=== PATIENT | male | born 1985 | race African-American/Black ===

== ENCOUNTER 2017-04-05 13:41 | Emergency (ER) | payer MEDICAID ==
[~2017-04-05] VITALS: Ht 185.4 cm; Wt 110.0 kg
[~2017-04-05 13:41] MED LIST: BENZ2TAB7 PO; QUET300T2 *; RISP2 PO; RIVA20TA PO; SERT-112 PO
[2017-04-05 15:13] LABS: HEMATOCRIT. 36.8 % (42.0-52.0); HEMOGLOBIN. 12.4 g/dL (14.0-18.0); MEAN CORPUSCULAR HEMOGLOBIN 31.2 pg (28.0-32.0); MEAN CORPUSCULAR VOLUME 92.5 fL (80.0-94.0); RED BLOOD CELL COUNT 3.98 mill/uL (4.7-6.1)
[2017-04-05 15:14] LABS: MEAN PLATELET VOLUME 9.4 fl (7.4-10.4); PLATELET 181 x1000/uL (130-400); RED CELL DISTRIBUTION WIDTH 14.3 % (11.6-14.6)
[2017-04-05 15:22] LABS: D-DIMER 0.27 mg/L FEU (<0.50); PROTHROMBIN TIME 10.7 sec (9.4-11.6)
[2017-04-05 15:23] LABS: CHLORIDE 110 mEq/L (98-107)
[2017-04-05 15:31] LABS: CARBON DIOXIDE 27 mEq/L (21-32)
[2017-04-05 16:26] LABS: PLATELET ESTIMATE NORMAL
[2017-04-05] MEDS ORDERED: ACETAMINOPHEN WITH CODEINE 300/30MG TABLET PO ONE (17:00)
[2017-04-05 20:00] VITALS: BP 137/82
[2017-04-06] MEDS ORDERED: RIVAROXABAN 15 MG TABLET PO SCH (17:00)
== END 2017-04-05 20:01 | disposition home or self-care (01) ==
LOC: ER 16:07
DX: I82.411 Acute embolism and thrombosis of right femoral vein (principal); I82.432 Acute embolism and thrombosis of left popliteal vein; R07.89 Other chest pain; F17.210 Nicotine dependence, cigarettes, uncomplicated; F20.9 Schizophrenia, unspecified; F31.9 Bipolar disorder, unspecified; Z86.711 Personal history of pulmonary embolism; Z79.01 Long term (current) use of anticoagulants
CPT/HCPCS: 36415; 71010; 80053; 85025; 85379; 85610; 93005; 93970; 99285; Z7610

== ENCOUNTER 2017-04-14 15:32 | Emergency (ER) | payer SELFPAY ==
[~2017-04-14] VITALS: Ht 185.4 cm; Wt 85.0 kg
[2017-04-14 19:07] LABS: BASOPHILS % 0.7 % (0.0-2.0); EOSINOPHILS % 0.9 % (0.0-5.0); HEMATOCRIT. 36.2 % (42.0-52.0); HEMOGLOBIN. 12.3 g/dL (14.0-18.0); LYMPHOCYTES % 28.2 % (20.0-50.0); MEAN CORPUSCULAR HEMOGLOBIN 31.4 pg (28.0-32.0); MEAN CORPUSCULAR VOLUME 92.1 fL (80.0-94.0); MEAN PLATELET VOLUME 8.4 fl (7.4-10.4); MONOCYTES % 10.3 % (2.0-8.0); NEUTROPHILS % 59.9 % (40.0-76.0); PLATELET 326 x1000/uL (130-400); RED BLOOD CELL COUNT 3.93 mill/uL (4.7-6.1); RED CELL DISTRIBUTION WIDTH 13.7 % (11.6-14.6)
[2017-04-14 19:18] LABS: CARBON DIOXIDE 26 mEq/L (21-32); CHLORIDE 110 mEq/L (98-107); ETHANOL BLOOD < 10 mg/dL
[2017-04-15] MEDS ORDERED: LORAZEPAM 1MG TABLET PO ONE (01:30)
[2017-04-15] MEDS ORDERED: IBUPROFEN 600MG TABLET PO ONE (01:30)
[2017-04-15 02:04] LABS: *AMPHETAMINES SCREEN URINE NEGATIVE (NEGATIVE); *BARBITURATES SCREEN URINE NEGATIVE (NEGATIVE); *BENZODIAZEPINES SCREEN URINE NEGATIVE (NEGATIVE); *COCAINE SCREEN URINE NEGATIVE (NEGATIVE); CANNABINOID URINE SCREEN NEGATIVE (NEGATIVE); METHADONE URINE SCREEN NEGATIVE (NEGATIVE); OPIATES URINE SCREEN NEGATIVE (NEGATIVE); PHENCYCLIDINE URINE SCREEN NEGATIVE (NEGATIVE)
[2017-04-15 08:50] VITALS: BP 115/75
== END 2017-04-15 09:06 | disposition home or self-care (01) ==
LOC: ER 15:32
DX: R45.851 Suicidal ideations (principal); I83.023 Varicose veins of left lower extremity with ulcer of ankle; L97.329 Non-pressure chronic ulcer of left ankle with unspecified severity; F20.9 Schizophrenia, unspecified; F12.10 Cannabis abuse, uncomplicated; F17.200 Nicotine dependence, unspecified, uncomplicated; Z79.01 Long term (current) use of anticoagulants
CPT/HCPCS: 36415; 80053; 80305; 80307; 80329; 85025; 99284; G0482; Z7610

== ENCOUNTER 2017-08-09 03:21 | Emergency (ER) | payer SELFPAY ==
[~2017-08-09] VITALS: Ht 185.4 cm; Wt 91.0 kg
[2017-08-09 05:11] LABS: BASOPHILS % 0.7 % (0.0-2.0); EOSINOPHILS % 2.1 % (0.0-5.0); HEMATOCRIT. 40.3 % (42.0-52.0); HEMOGLOBIN. 13.1 g/dL (14.0-18.0); LYMPHOCYTES % 27.6 % (20.0-50.0); MEAN CORPUSCULAR VOLUME 89.1 fL (80.0-94.0); MEAN PLATELET VOLUME 8.6 fl (7.4-10.4); MONOCYTES % 11.1 % (2.0-8.0); NEUTROPHILS % 58.5 % (40.0-76.0); PLATELET 184 x1000/uL (130-400); RED BLOOD CELL COUNT 4.52 mill/uL (4.7-6.1)
[2017-08-09 05:17] LABS: PROTHROMBIN TIME 10.7 sec (9.4-11.6)
[2017-08-09 05:31] LABS: CHLORIDE 107 mEq/L (98-107)
[2017-08-09 06:38] VITALS: BP 118/79
== END 2017-08-09 06:50 | disposition home or self-care (01) ==
LOC: ER 03:21
DX: I82.413 Acute embolism and thrombosis of femoral vein, bilateral (principal); I10 Essential (primary) hypertension; F20.9 Schizophrenia, unspecified; F12.10 Cannabis abuse, uncomplicated; F17.200 Nicotine dependence, unspecified, uncomplicated; Z86.711 Personal history of pulmonary embolism; Z79.01 Long term (current) use of anticoagulants
CPT/HCPCS: 36415; 73610; 80048; 85025; 85610; 93970; 99285